=== PATIENT | male | born 1990 | race Caucasian/White ===

== ENCOUNTER 2016-12-10 15:07 | Emergency (ER) | payer SELFPAY ==
[~2016-12-10] VITALS: Ht 175.3 cm; Wt 72.4 kg
[~2016-12-10 15:07] MED LIST: BENT20TA PO; KETO10 PO
[2016-12-10 15:16] VITALS: BP 143/90; PULSE 102; RESP 16; TEMP 98; O2SAT 100
--- NOTE | 2016-12-10 15:36 | PD ---
HPI Chief Complaint: Cardiac Complaint Time Seen by Provider: 15:25 Travel History International Travel<30 days: No Contact w/Intl Traveler<30days: No Traveled to known affect area: No History of Present Illness HPI PATIENT HAS HAD PALPITATIONS FOR THE PAST 2 WEEKS OR SO OCCURRING MORE REGULARLY. STATES HE IS IN THE AND TODAY HAD HIS PHYSICAL AND MENTIONED THIS TO PROVIDER, HE WAS TOLD TO GO TO ER [facility] Past Medical History Medical History: Denies Significant Hx Diminished Hearing: No Influenza Vaccination: Yes ?: Not Past Surgical History Surgical History: No Previous Surgery Social History Alcohol Use: Yes (occ) Tobacco Use: No Allergies-Medications (Allergen,Severity, Reaction): Coded Allergies: No Known Allergies (Unverified , 12/10/16) Reported Meds & Prescriptions Reported Meds & Active Scripts Active Review of Systems Except as stated in HPI: all other systems reviewed are Neg Cardiovascular: Positive: Palpitations Physical Exam Narrative GENERAL: SKIN: Warm and dry. HEAD: Atraumatic. Normocephalic. EYES: Pupils equal and round. No scleral icterus. No injection or drainage. ENT: No nasal bleeding or discharge. Mucous membranes pink and moist. NECK: Trachea midline. No JVD. CARDIOVASCULAR: Regular rate and rhythm. WITH OCCASIONAL PAC'S RESPIRATORY: No accessory muscle use. Clear to auscultation. Breath sounds equal bilaterally. GASTROINTESTINAL: Abdomen soft, non-tender, nondistended. Hepatic and splenic margins not palpable. MUSCULOSKELETAL: Extremities without clubbing, cyanosis, or edema. No obvious deformities. NEUROLOGICAL: Awake and alert. No obvious cranial nerve deficits. Motor grossly within normal limits. Five out of 5 muscle strength in the arms and legs. Normal speech. PSYCHIATRIC: Appropriate mood and affect; insight and judgment normal. Data Data Last Documented VS Vital Signs Date Time Temp Pulse Resp B/P Pulse Ox O2 Delivery O2 Flow Rate FiO2 12/10/16 15:16 98.0 102 16 143/90 100 Orders Electrocardiogram (12/10/16 15:31) Complete Blood Count With Diff (12/10/16 15:31) Comprehensive Metabolic Panel (12/10/16 15:31) Troponin I (12/10/16 15:31) B-Type Natriuretic Peptide (12/10/16 15:31) D-Dimer (12/10/16 15:31) Thyroid Stimulating Hormone (12/10/16 15:31) Chest, Single Ap (12/10/16 15:31) Drug Screen, Random Urine (12/10/16 15:31) Labs Laboratory Tests Test 12/10/16 15:38 White Blood Count 6.3 TH/MM3 Red Blood Count 5.51 MIL/MM3 Hemoglobin 16.4 GM/DL Hematocrit 48.0 % Mean Corpuscular Volume 87.1 FL Mean Corpuscular Hemoglobin 29.8 PG Mean Corpuscular Hemoglobin 34.2 % Concent Red Cell Distribution Width 12.0 % Platelet Count 278 TH/MM3 Mean Platelet Volume 7.6 FL Neutrophils (%) (Auto) 60.7 % Lymphocytes (%) (Auto) 27.7 % Monocytes (%) (Auto) 9.3 % Eosinophils (%) (Auto) 1.7 % Basophils (%) (Auto) 0.6 % Neutrophils # (Auto) 3.8 TH/MM3 Lymphocytes # (Auto) 1.7 TH/MM3 Monocytes # (Auto) 0.6 TH/MM3 Eosinophils # (Auto) 0.1 TH/MM3 Basophils # (Auto) 0.0 TH/MM3 CBC Comment DIFF FINAL Differential Comment D-Dimer Quantitative (PE/DVT) LESS THAN 0.19 MG/L FEU Sodium Level 139 MEQ/L Potassium Level 3.4 MEQ/L Chloride Level 102 MEQ/L Carbon Dioxide Level 27.9 MEQ/L Anion Gap 9 MEQ/L Blood Urea Nitrogen 16 MG/DL Creatinine 1.20 MG/DL Estimat Glomerular Filtration 73 ML/MIN Rate Random Glucose 122 MG/DL Calcium Level 9.5 MG/DL Total Bilirubin 0.6 MG/DL Aspartate Amino Transf 15 U/L (AST/SGOT) Alanine Aminotransferase 44 U/L (ALT/SGPT) Alkaline Phosphatase 72 U/L Troponin I LESS THAN 0.02 NG/ML B-Type Natriuretic Peptide LESS THAN 2 PG/ML Total Protein 8.8 GM/DL Albumin 4.5 GM/DL Thyroid Stimulating Hormone 1.430 uIU/ML 3rd Gen [facility] Medical Decision Making Medical Screen Exam Complete: Yes Emergency Medical Condition: Yes Medical Record Reviewed: Yes Interpretation(s) NSR 93, NORMAL INTERVALS, NO STEMI PATTERN, PAC'S UNIFOCAL NOTED Differential Diagnosis ANEMIA, DEHYDRATION, HYPERTHYROID, IF ALL NEGATIVE PALPITATIONS WORKUP OUTPATIENT WITH [employer] FOR HOLTER MONITOR AND ECHO Narrative Course SEE ABOVE Diagnosis Primary Impression: Palpitations Referrals: Scout Orellana MD FOR FURTHER EVALUATION OF PALPITATIONS (ECHOCARDIOGRAM ALONG WITH HOLTER MONITOR ) Patient Instructions: General Instructions, Palpitations (ED) Disposition: 01 DISCHARGE HOME Condition: Stable Sedrick Miller MD Dec 10, 2016 15:36
[2016-12-10 15:48] LABS: AUTOMATED NEUTROPHIL # 3.8 TH/MM3 (1.8-7.7); BASOPHIL % 0.6 % (0.0-2.0); EOSINOPHIL # 0.1 TH/MM3 (0-0.4); EOSINOPHIL % 1.7 % (0.0-4.0); HEMO FLAGS DIFF FINAL; LYMPH % 27.7 % (9.0-44.0); LYMPHOCYTE # 1.7 TH/MM3 (1.0-4.8); MEAN CELL VOLUME 87.1 FL (80.0-100.0); MEAN CORPUSCULAR HEMOGLOBIN 29.8 PG (27.0-34.0); MEAN CORPUSCULAR HGB CONC 34.2 % (32.0-36.0); MONO % 9.3 % (0.0-8.0); NEUT % 60.7 % (16.0-70.0); PLATELET COUNT 278 TH/MM3 (150-450); RED BLOOD COUNT 5.51 MIL/MM3 (4.50-5.90); WHITE BLOOD COUNT 6.3 TH/MM3 (4.0-11.0)
[2016-12-10 15:56] LABS: CHLORIDE 102 MEQ/L (98-107); POTASSIUM 3.4 MEQ/L (3.5-5.1); SODIUM (NA) 139 MEQ/L (136-145)
[2016-12-10 16:00] LABS: ANION GAP 9 MEQ/L (5-15); BICARBONATE 27.9 MEQ/L (21.0-32.0); BLOOD UREA NITROGEN 16 MG/DL (7-18)
[2016-12-10 16:03] LABS: ALT (GPT) 44 U/L (12-78); AST (GOT) 15 U/L (15-37); GLOMERULAR FILTRATION RATE 73 ML/MIN (>89)
[2016-12-10 16:04] LABS: TOTAL BILIRUBIN ADULT 0.6 MG/DL (0.2-1.0)
[2016-12-10 16:05] LABS: ALKALINE PHOSPHATASE 72 U/L (45-117)
--- NOTE | 2016-12-10 16:11 | RADHPO ---
EXAM DATE/TIME: 12/10/2016 15:57 [facility] COMPARISON: No previous studies available for comparison. INDICATIONS : Irregular heart rate off and on for 2 weeks, worse today MEDICAL HISTORY : None. SURGICAL HISTORY : None. ENCOUNTER: Initial ACUITY: 2 weeks PAIN SCORE: 0/10 LOCATION: Bilateral chest FINDINGS: A single view of the chest demonstrates the lungs to be symmetrically aerated without evidence of mas s, infiltrate or effusion. The cardiomediastinal contours are unremarkable. Osseous structures are intact. CONCLUSION: No acute disease. Danyel Leggett MD on December 10, 2016 at 16:10 Board Certified Radiologist. This report was verified electronically.
[2016-12-10 16:25] LABS: BARBITURATES, URINE NEG (NEG)
[2016-12-10 16:26] LABS: AMPHETAMINE, URINE NEG (NEG); COCAINE, URINE NEG (NEG)
--- NOTE | 2016-12-11 10:59 | EKG ---
Date Performed: 12/10/2016 Time Performed: 15:16:20 PTAGE: 26 years EKG: Sinus rhythm . ST junctional depression is nonspecific Borderline ECG NO PREVIOUS TRACING DOCTOR: Bladimir Pisano Interpretating Date/Time 12/11/2016 10:58:10
== END 2016-12-10 16:45 | disposition home or self-care (01) ==
LOC: PHED 15:07
DX: R00.2 Palpitations (principal); R94.31 Abnormal electrocardiogram [ECG] [EKG]
CPT/HCPCS: 71010; 80053; 80307; 83880; 84443; 84484; 85025; 85379; 93005

== ENCOUNTER 2017-01-08 18:20 | Emergency (ER) | payer SELFPAY ==
[~2017-01-08] VITALS: Ht 175.3 cm; Wt 70.0 kg
[2017-01-08 18:22] VITALS: BP 154/88; PULSE 78; RESP 14; TEMP 98.2; O2SAT 98
[2017-01-08] MEDS ORDERED: SODIUM CHLORIDE 0.9% FLUSH 10 ML FLUSH IVF PRN (19:30)
--- NOTE | 2017-01-08 19:49 | PD ---
HPI Chief Complaint: Cardiac Complaint Time Seen by Provider: 19:45 Travel History International Travel<30 days: No Contact w/Intl Traveler<30days: No Traveled to known affect area: No History of Present Illness HPI Patient is a 26-year-old male presenting to the emergency department for evaluation of left chest pressure. Patient states it started around midnight, he denies any shortness of breath, nausea, vomiting, radiation of chest pain, headache. He denies any history of the same. Pain started at rest, it is not exacerbated or alleviated by anything. Denies any illicit drug use, he exercises regularly without chest pain. Patient is in the [employer]. He denies any significant past medical history or significant past family history. [facility] Past Medical History Medical History: Denies Significant Hx Diminished Hearing: No Social History Alcohol Use: Yes ([facility]) Tobacco Use: No Allergies-Medications (Allergen,Severity, Reaction): Coded Allergies: No Known Allergies (Unverified , 12/10/16) Reported Meds & Prescriptions Reported Meds & Active Scripts Active Review of Systems Except as stated in HPI: all other systems reviewed are Neg Cardiovascular: Positive: Chest Pain or Discomfort Physical Exam Narrative GENERAL: Well-developed, well-nourished, alert male. Resting comfortably in no acute distress. SKIN: Focused skin assessment warm/dry. HEAD: Atraumatic. Normocephalic. EYES: Pupils equal and round. No scleral icterus. No injection or drainage. ENT: No nasal bleeding or discharge. Mucous membranes pink and moist. NECK: Trachea midline. No JVD. CARDIOVASCULAR: Regular rate and rhythm. No murmur appreciated. RESPIRATORY: No accessory muscle use. Clear to auscultation. Breath sounds equal bilaterally. GASTROINTESTINAL: Abdomen soft, non-tender, nondistended. Hepatic and splenic margins not palpable. MUSCULOSKELETAL: No obvious deformities. No clubbing. No cyanosis. No edema. NEUROLOGICAL: Awake and alert. No obvious cranial nerve deficits. Motor grossly within normal limits. Normal speech. PSYCHIATRIC: Appropriate mood and affect; insight and judgment normal. Data Data Last Documented VS Vital Signs Date Time Temp Pulse Resp B/P Pulse Ox O2 Delivery O2 Flow Rate FiO2 01/08/17 20:07 80 01/08/17 20:00 99 Room Air 01/08/17 20:00 16 135/76 01/08/17 18:22 98.2 Orders Electrocardiogram (01/08/17 19:24) Ckmb (Isoenzyme) Profile (01/08/17 19:24) Complete Blood Count With Diff (01/08/17:24) Comprehensive Metabolic Panel (01/08/17:24) Magnesium (Mg) (01/08/17:24) Prothrombin Time / Inr (Pt) (01/08/17:24) Act Partial Throm Time (Ptt) (01/08/17:24) Troponin I (01/08/17:24) Chest, Single Ap (01/08/17:24) Ecg Monitoring (01/08/17:24) Bilateral Bp Monitoring (01/08/17:24) Iv Access Insert/Monitor (01/08/17) Oximetry (01/08/17:24) Oxygen Administration (01/08/17:24) Sodium Chloride 0.9% Flush (Ns Flush) (01/08/17 19:30) CKMB (01/08/17 20:00) CKMB% (01/08/17 20:00) Labs Laboratory Tests Test 01/08/17 20:00 White Blood Count 6.7 TH/MM3 Red Blood Count 5.37 MIL/MM3 Hemoglobin 16.0 GM/DL Hematocrit 46.5 % Mean Corpuscular Volume 86.7 FL Mean Corpuscular Hemoglobin 29.8 PG Mean Corpuscular Hemoglobin 34.4 % Concent Red Cell Distribution Width 12.6 % Platelet Count 252 TH/MM3 Mean Platelet Volume 8.3 FL Neutrophils (%) (Auto) 74.1 % Lymphocytes (%) (Auto) 16.1 % Monocytes (%) (Auto) 7.5 % Eosinophils (%) (Auto) 1.8 % Basophils (%) (Auto) 0.5 % Neutrophils # (Auto) 5.0 TH/MM3 Lymphocytes # (Auto) 1.1 TH/MM3 Monocytes # (Auto) 0.5 TH/MM3 Eosinophils # (Auto) 0.1 TH/MM3 Basophils # (Auto) 0.0 TH/MM3 CBC Comment DIFF FINAL Differential Comment Prothrombin Time 10.9 SEC Prothromb Time International 1.0 RATIO Ratio Activated Partial 31.0 SEC Thromboplast Time Sodium Level 138 MEQ/L Potassium Level 3.8 MEQ/L Chloride Level 102 MEQ/L Carbon Dioxide Level 26.7 MEQ/L Anion Gap 9 MEQ/L Blood Urea Nitrogen 20 MG/DL Creatinine 1.09 MG/DL Estimat Glomerular Filtration 82 ML/MIN Rate Random Glucose 86 MG/DL Calcium Level 9.5 MG/DL Magnesium Level 1.9 MG/DL Total Bilirubin 0.4 MG/DL Aspartate Amino Transf 21 U/L (AST/SGOT) Alanine Aminotransferase 44 U/L (ALT/SGPT) Alkaline Phosphatase 79 U/L Total Creatine Kinase 131 U/L Troponin I LESS THAN 0.02 NG/ML Total Protein 8.6 GM/DL Albumin 4.5 GM/DL MDM Medical Decision Making Medical Screen Exam Complete: Yes Emergency Medical Condition: Yes Interpretation(s) Vital Signs Date Time Temp Pulse Resp B/P Pulse Ox O2 Delivery O2 Flow Rate FiO2 01/08/17 18:22 98.2 78 14 154/88 98 Differential Diagnosis Chest wall pain versus atypical chest pain versus pleurisy versus other Narrative Course Patient is a 26-year-old male presenting to emergency for evaluation of left upper chest pain. Patient has no risk factors, he is able to exercise and perform PT regularly in the [employer] with no chest pain. Patient's vital signs are stable, EKG shows sinus rhythm, chest x-ray is unremarkable. CBC is unremarkable Chemistry is unremarkable Troponin is negative 1 set Coags are unremarkable Patient is reassured at this time there is no acute findings. He was encouraged to follow-up with his primary doctor. He was encouraged to return immediately to emergency department for any new or worsening symptoms. He was advised if he has chest pain that he should present immediately, verbalized understanding of instructions. Patient is stable for discharge. Diagnosis Primary Impression: Chest pain with minimal risk for cardiac etiology Referrals: Primary Care Physician Patient Instructions: Chest Pain (ED), General Instructions Additional Instructions: Follow-up with your primary doctor Return to emergency department immediately for any new or worsening symptoms Take medications as directed Med/Other Pt SpecificInfo: Prescription(s) given Scripts Ibuprofen 800 Mg [id number] Mg PO Q8H PRN (Pain/Inflammation) 10 Days Ref 0 Prov:Kaila Giron 01/08/17 Disposition: 01 DISCHARGE HOME Condition: Stable Kaila Giron Jan 08, 2017 19:49
--- NOTE | 2017-01-08 19:56 | RADRPT ---
EXAM DATE/TIME: 01/08/2017 19:36 [facility] COMPARISON: CHEST SINGLE AP, December 10, 2016, 15:57. INDICATIONS : Chest pain and pressure. MEDICAL HISTORY : Hypertension. SURGICAL HISTORY : None. ENCOUNTER: Initial ACUITY: 1 day PAIN SCORE: 5/10 LOCATION: Bilateral chest FINDINGS: A single view of the chest demonstrates the lungs to be symmetrically aerated without evidence of mas s, infiltrate or effusion. The cardiomediastinal contours are unremarkable. Osseous structures are intact. CONCLUSION: The lungs are clear. Silver Crwes MD on January 08, 2017 at 19:54 Board Certified Radiologist. This report was verified electronically.
[2017-01-08 20:00] VITALS: BP 135/76; PULSE 84; RESP 16; O2SAT 99
[2017-01-08 20:07] VITALS: PULSE 80
[2017-01-08 20:28] LABS: BASOPHIL % 0.5 % (0.0-2.0); EOSINOPHIL # 0.1 TH/MM3 (0-0.4); EOSINOPHIL % 1.8 % (0.0-4.0); HEMATOCRIT 46.5 % (39.0-51.0); HEMO FLAGS DIFF FINAL; LYMPH % 16.1 % (9.0-44.0); LYMPHOCYTE # 1.1 TH/MM3 (1.0-4.8); MEAN CELL VOLUME 86.7 FL (80.0-100.0); MEAN CORPUSCULAR HEMOGLOBIN 29.8 PG (27.0-34.0); MEAN CORPUSCULAR HGB CONC 34.4 % (32.0-36.0); MONO % 7.5 % (0.0-8.0); NEUT % 74.1 % (16.0-70.0); PLATELET COUNT 252 TH/MM3 (150-450); RED BLOOD COUNT 5.37 MIL/MM3 (4.50-5.90); RED CELL DISTRIBUTION WIDTH 12.6 % (11.6-17.2); WHITE BLOOD COUNT 6.7 TH/MM3 (4.0-11.0)
[2017-01-08 20:32] LABS: PROTHROMBIN TIME - PATIENT 10.9 SEC (9.8-11.6)
[2017-01-08 20:36] LABS: ALT (GPT) 44 U/L (12-78); ANION GAP 9 MEQ/L (5-15); AST (GOT) 21 U/L (15-37); BICARBONATE 26.7 MEQ/L (21.0-32.0); BLOOD UREA NITROGEN 20 MG/DL (7-18); CHLORIDE 102 MEQ/L (98-107); GLOMERULAR FILTRATION RATE 82 ML/MIN (>89); MAGNESIUM 1.9 MG/DL (1.5-2.5); POTASSIUM 3.8 MEQ/L (3.5-5.1); SODIUM (NA) 138 MEQ/L (136-145)
[2017-01-08 20:40] LABS: ALKALINE PHOSPHATASE 79 U/L (45-117); CREATINE KINASE 131 U/L (39-308); TOTAL BILIRUBIN ADULT 0.4 MG/DL (0.2-1.0)
[2017-01-08 20:53] LABS: CKMB 0.9 NG/ML (0.5-3.6)
[2017-01-08] MEDS ORDERED: IBUP800T23 PO (20:56)
[2017-01-08 21:37] VITALS: BP 139/71
--- NOTE | 2017-01-09 13:19 | EKG ---
Date Performed: 01/08/2017 Time Performed: 19:40:23 PTAGE: 26 years EKG: Sinus rhythm EARLY REPOLARIZATION BORDERLINE ECG PREVIOUS TRACING : 12/10/2016 15.16 Compared to prior tracing no significant change DOCTOR: Rene Nance Interpretating Date/Time 01/09/2017 13:14:53
== END 2017-01-08 21:00 | disposition home or self-care (01) ==
LOC: NEPD 18:20
DX: R07.9 Chest pain, unspecified (principal); R94.31 Abnormal electrocardiogram [ECG] [EKG]
CPT/HCPCS: 71010; 80053; 82550; 82552; 83735; 84484; 85025; 85610; 85730; 93005